=== PATIENT | female | born 1965 | race Caucasian/White ===

== ENCOUNTER → 2017-06-04 | Outpatient (CLI) | payer BC ==
[~2017-06-04] MED LIST: HYDR-3583 PO; OMG1KC PO
--- NOTE | 2017-06-04 19:07 | Diagnostic Imaging Report ---
Digital mammogram bilateral screening. This study was compared to the prior exams of 05/23/2016, 03/09/2015, and 02/10/2014. At this time, there are no current complaints. The current study was also evaluated with a Computer Aided Detection (CAD) system. FINDINGS: The fibroglandular tissue in both breasts is dense. This does limit the sensitivity of this exam. Overall, there does not appear to have been any significant change when compared to the prior study. No primary or secondary sign of malignancy is noted. 3D tomographic images fail to show any sign of malignancy. IMPRESSION: There is no radiographic evidence for malignancy. ACR BI-RADS Category 1: Negative. Result letter will be mailed to the patient. Note: At least 10% of breast cancer is not imaged by mammography. Dictated by: Dictated on workstation # [id number]
== END ==
LOC: RAD 07:28
PROVIDERS: ATTEND Family Medicine
DX: Z12.31 Encounter for screening mammogram for malignant neoplasm of breast (principal)
CPT/HCPCS: 77067

== ENCOUNTER → 2018-08-06 | Outpatient (CLI) | payer BC ==
[~2018-08-06] MED LIST changes: +LORA10TA76 PO
--- NOTE | 2018-08-06 13:56 | Diagnostic Imaging Report ---
INDICATION: Routine screening. COMPARISON: Comparison is made with prior mammograms from 06/04/2017 and 05/23/2016. TECHNIQUE: 2D and 3D bilateral screening mammography was performed with Computer Aided Detection (CAD) system. FINDINGS: Both breasts remain heterogeneously dense, limiting the sensitivity of mammography. Benign calcifications are noted bilaterally. No mass or malignant appearing microcalcifications are seen. The axillae are unremarkable. IMPRESSION: No mammographic features suspicious for malignancy are identified. ACR BI-RADS Category 2: Benign findings. Result letter will be mailed to the patient. Note: At least 10% of breast cancer is not imaged by mammography. Dictated by: Dictated on workstation # [id number]
== END ==
LOC: RAD 10:32
PROVIDERS: ATTEND Family Medicine
DX: Z12.31 Encounter for screening mammogram for malignant neoplasm of breast (principal)
CPT/HCPCS: 77067

== ENCOUNTER 2018-08-13 12:59 | Outpatient (CLI) | payer BC ==
[~2018-08-13] VITALS: Ht 170.2 cm; Wt 99.8 kg
== END 2018-08-13 13:02 | disposition home or self-care (01) ==
LOC: PREOP 12:59
PROVIDERS: ATTEND Surgery
DX: Z01.818 Encounter for other preprocedural examination (principal)

== ENCOUNTER 2018-08-19 08:11 | Day surgery (SDC) | payer BC ==
[~2018-08-19] VITALS: Ht 170.2 cm; Wt 99.8 kg
[2018-08-19] MEDS ORDERED: NS IV 500 ML 500 ML ONE (08:16)
[2018-08-19 08:25] VITALS: BP 140/95
[2018-08-19] MEDS ORDERED: NS IV 500 ML 500 ML IV PRN (08:36)
[2018-08-19] MEDS ORDERED: fentaNYL INJECTION 100 MCG/2 ML AMP IVP ONE (08:45)
[2018-08-19] MEDS ORDERED: MIDAZOLAM 2 MG/2 ML (VERSED) VIAL IVP ONE (08:45)
--- NOTE | 2018-08-19 08:58 | History & Physicial ---
History of Present Illness History of Present Illness Reason for visit/HPI to undergo screening colonoscopy. No family history of colon cancer Date of Admission 08/19/18 Date Seen by a Provider: Aug 19, 2018 Time Seen by a Provider: 08:57 I consulted on this patient on 08/19/18 08:56 Attending Physician Lynette Muse MD Admitting Physician Christian Chaney MD Consult Allergies and Home Medications Allergies Coded Allergies: No Known Drug Allergies (Unverified , 11/21/10) Home Medications Loratadine 10 Mg Tablet, 10 MG PO DAILY, (Reported) Patient Home Medication List Home Medication List Reviewed: Yes Past Namhbqj-Aruxrs-Bcvnmt Hx Patient Social History Marrital Status: Employed/Student: employed Alcohol Use: Occasionally Uses Recreational Drug Use: No Smoking Status: Never a Smoker Recent Foreign Travel: No Contact w/other who traveled: No Recent Hopitalizations: No Recent Infectious Disease Expo: No Immunizations Up To Date Date of Influenza Vaccine: Jul 22, 2018 Seasonal Allergies Seasonal Allergies: Yes Surgeries Yes Tonsillectomy Reproductive System Hx Reproductive Disorders: No Sexually Transmitted Disease: No Genitourinary No Gastrointestinal No Musculoskeletal No Endocrine History of Endocrine Disorders: No Review of Systems Constitutional: no symptoms reported EENTM: no symptoms reported Cardiovascular: no symptoms reported Genitourinary: no symptoms reported Musculoskeletal: no symptoms reported Skin: no symptoms reported Psychiatric/Neurological: No Symptoms Reported Physical Exam Vital Signs Vital Signs - First Documented 08/19/18 08:25 Temp 98.0 Pulse 72 Resp 20 B/P (MAP) 140/95 (110) Pulse Ox 98 O2 Delivery Room Air Capillary Refill : Height, Weight, BMI Height: 5'7.00" Weight: 220lbs. 0.0oz. [id number]; 34.5 BMI Method: General Appearance: No Apparent Distress Neck: Normal Inspection Respiratory: Lungs Clear Cardiovascular: Regular Rate, Rhythm Gastrointestinal: Non Tender, Soft Rectal: Deferred Extremity: Normal Inspection Neurologic/Psychiatric: Alert, Oriented x3 Skin: Warm/Dry Assessment/Plan Assessment and Plan lady here to undergo screening colonoscopy. Admission Diagnosis Admission Status: Other (Outpt Proc) LYNETTE MUSE MD Aug 19, 2018 08:58
--- NOTE | 2018-08-19 08:59 | Conscious Sedation/ASA ---
Conscious Sedation Pre-Proced Time 08:58 ASA Score 1 For ASA 3 and 4: Consider anesthesia and medical clearance. Also, for patients with a history of failed moderate sedation consider anesthesia. Airway Lungs Heart ASA score ASA 1: a normal healthy patient ASA 2: a patient with a mild systemic disease (mid diabetes, controlled hypertension, obesity ASA 3: a patient with a severe systemic disease that limits activity (angina , COPD, prior Myocardial infarction) ASA 4: a patient with an incapacitating disease that is a constant threat to life (CHF, renal failure) ASA 5: a moribund patient not expected to survive 24 hrs. (ruptured aneurysm) ASA 6: a declared brain patient whose organs are being harvested. For emergent operations, add the letter E after the classification Mallampati Classification Grade 1 Sedation Plan Discussed options with patient/fam The patient is an appropriate candidate to undergo the planned procedure, sedation, and anesthesia. The patient immediately re-assessed prior to indication. LYNETTE MUSE MD Aug 19, 2018 08:59
[2018-08-19] MEDS ORDERED: MIDAZOLAM 2 MG/2 ML (VERSED) VIAL ONE ×4 (09:35→09:36)
[2018-08-19] MEDS ORDERED: fentaNYL INJECTION 100 MCG/2 ML AMP ONE (09:35)
--- NOTE | 2018-08-19 09:39 | Endo Procedure Record ---
Endo Procedure Report Date of Procedure Last Colonoscopy: No Aug 19, 2018 Surgeon (s) LYNETTE MUSE MD Post Procedure/Op Diagnosis normal colonoscopy Procedure Performed colonoscopy to cecum Description of Procedure Anesthesia Type: Conscious Sedation Specimen(s) collected/removed none Description of the Procedure Indication for the procedure: This lady came in for screening colonoscopy. She denied any relevant family history. Informed consent was obtained after reviewing the procedure in detail. Description of the procedure: She was placed in left lateral rectus position and her vital signs were monitored. Conscious sedation was achieved using Versed and fentanyl. Digital rectal examination was unremarkable. The colonoscope was then introduced into the rectum and advanced to the cecum. It was then withdrawn slowly and the mucosa examined in a systematic fashion. There was no abnormality. She tolerated the procedure well and was taken back to the nursing area in a stable condition. Impression: Normal screening colonoscopy. No family history. Recommend repeating 10 years. Copy Copies To 1: SUKHDEV EVANS MD, XAVIER M MD Aug 19, 2018 09:39
--- NOTE | 2018-08-19 09:57 | Discharge Inst-Simple/Standard ---
Discharge Inst-Standard Discharge Medications New, Converted or Re-Newed RX: Other Patient Instructions/Follow Up Plan of Care/Instructions/FU: repeat colonoscopy in 10 years Activity as Tolerated: Yes Discharge Diet: No Restrictions LYNETTE MUSE MD Aug 19, 2018 09:57
[2018-08-19 10:15] VITALS: BP 121/72
[2018-08-19 10:45] VITALS: BP 118/93
[2018-08-19 11:03] VITALS: BP 118/93
== END 2018-08-19 11:20 | disposition home or self-care (01) ==
LOC: ENDO 08:11
PROVIDERS: ATTEND Surgery
DX: Z12.11 Encounter for screening for malignant neoplasm of colon (principal)

== ENCOUNTER → 2019-08-29 | Outpatient (CLI) | payer BC ==
--- NOTE | 2019-08-29 17:49 | Diagnostic Imaging Report ---
EXAMINATION: Digital mammogram bilateral screening. The current study was also evaluated with a Computer Aided Detection (CAD) system. 3-D tomosynthesis was also performed and reviewed. INDICATION: Screening. This study is compared with the prior exams of 08/06/2018, 06/04/2017, and 05/23/2016. At this time, there are no current complaints. FINDINGS: The fibroglandular tissue in both breasts is heterogeneously dense. This does limit the sensitivity of this exam. Overall, there does not appear to have been any significant change when compared to the prior study. No primary or secondary sign of malignancy is noted. 3D tomographic images fail to show any sign of malignancy. IMPRESSION: There is no radiographic evidence for malignancy. ACR BI-RADS Category 1: Negative. Result letter will be mailed to the patient. Note: At least 10% of breast cancer is not imaged by mammography. Dictated by: Dictated on workstation # [id number]
== END ==
LOC: RAD 07:15
PROVIDERS: ATTEND Family Medicine
DX: Z12.31 Encounter for screening mammogram for malignant neoplasm of breast (principal)
CPT/HCPCS: 77067

== ENCOUNTER → 2020-08-30 | Outpatient (CLI) | payer BC ==
--- NOTE | 2020-08-30 11:38 | Diagnostic Imaging Report ---
INDICATION: Routine screening. Comparison is made with prior mammogram 08/29/2019 and 08/06/2018. 2-D and 3-D bilateral screening mammography was performed with CAD. Both breasts are heterogeneously dense, limiting the sensitivity of mammography. The parenchymal pattern is stable. No mass or malignant appearing microcalcifications are seen. Axillae are unremarkable. IMPRESSION: BI-RADS Category 1 No mammographic features suspicious for malignancy are identified. ACR BI-RADS Category 1: Negative. Result letter will be mailed to the patient. Note: At least 10% of breast cancer is not imaged by mammography. Dictated by: Dictated on workstation # [id number]
== END ==
LOC: RAD 09:15
PROVIDERS: ATTEND Family Medicine
DX: Z12.31 Encounter for screening mammogram for malignant neoplasm of breast (principal)
CPT/HCPCS: 77063; 77067

== ENCOUNTER → 2021-09-07 | Outpatient (CLI) | payer BC ==
--- NOTE | 2021-09-07 08:42 | Diagnostic Imaging Report ---
Indication: Routine screening. Comparison is made with prior mammogram 08/30/2020 and 08/29/2019. 2-D and 3-D bilateral screening mammography was performed with CAD. Both breasts are heterogeneously dense, limiting the sensitivity of mammography. Occasional benign calcifications are noted. No mass or malignant-appearing microcalcifications are seen. Axillae are unremarkable. IMPRESSION: BI-RADS Category 2 No mammographic features suspicious for malignancy are identified. ACR BI-RADS Category 2: Benign findings. Result letter will be mailed to the patient. Note: At least 10% of breast cancer is not imaged by mammography. Dictated by: Dictated on workstation # [id number]
== END ==
LOC: RAD 07:38
PROVIDERS: ATTEND Family Medicine
DX: Z12.31 Encounter for screening mammogram for malignant neoplasm of breast (principal)
CPT/HCPCS: 77063; 77067

== ENCOUNTER → 2022-09-08 | Outpatient (CLI) | payer BC ==
--- NOTE | 2022-09-08 12:21 | Diagnostic Imaging Report ---
Indication: Routine screening. Comparison is made with prior mammograms 09/07/2021 and 08/30/2020. 2-D and 3-D bilateral screening mammography was performed with CAD. Both breasts are heterogeneously dense, limiting the sensitivity of mammography. The parenchymal pattern is stable. There are benign calcifications. No mass or malignant-appearing microcalcifications are seen. Axillae are unremarkable. IMPRESSION: BI-RADS Category 2 No mammographic features suspicious for malignancy are parenchymal pattern ACR BI-RADS Category 2: Benign findings. Result letter will be mailed to the patient. Note: At least 10% of breast cancer is not imaged by mammography. Dictated by: Dictated on workstation # [id number]
== END ==
LOC: RAD 07:54
PROVIDERS: ATTEND Family Medicine
DX: Z12.31 Encounter for screening mammogram for malignant neoplasm of breast (principal)
CPT/HCPCS: 77063; 77067